=== PATIENT | female | born 1950 | race Caucasian/White ===

== ENCOUNTER 2016-08-07 07:34 | Day surgery (SDC) | payer BC ==
--- NOTE | ~2016-08-07 | EGD ---
EGD REPORT [facility] [address] [address] NAME: JULIUS MANUEL : [birth year] STATUS : REG [facility]#: [id number] AGE: 66 ADM/REG DATE : 08/07/16 MR#: [id number] REPORT SERV DATE: 08/07/16 DICTATED BY: SHANNON MORA DATE: 08/07/16 REPORT STATUS : Draft [facility]ANS[facility]IBED [facility]: [facility] DATE: 08/07/16 [facility] Patient Name: Julius Manuel Date of : 1950 Attending MD: JACOB MORA MD Procedure Date No Time: 08/07/2016 Procedure: Colonoscopy Indications: Screening for colorectal malignant neoplasm, Last colonoscopy: May 2006 Referring MD: NOE GIBBS Medicines: See the Anesthesia note for documentation of the administered medications Complications: No immediate complications. Estimated blood loss: None. Procedure: Pre-Anesthesia Assessment: - ASA Grade Assessment: II - A patient with mild systemic disease. - Prior to the procedure, a History and Physical was performed, and patient medications and allergies were reviewed. The patient's tolerance of previous anesthesia was also reviewed. The risks and benefits of the procedure and the sedation options and risks were discussed with the patient. All questions were answered, and informed consent was obtained. Prior Anticoagulants: The patient has taken no previous anticoagulant or antiplatelet agents. After reviewing the risks and benefits, the patient was deemed in satisfactory condition to undergo the procedure. After I obtained informed consent, the scope was passed under direct vision. Throughout the procedure, the patient's blood pressure, pulse, and oxygen saturations were monitored continuously. The PCF [id number] was introduced through the anus and advanced to the terminal ileum. The ileocecal valve, appendiceal orifice, terminal ileum and rectum were photographed. The entire colon was examined. The colonoscopy was performed without difficulty. The patient tolerated the procedure well. The quality of the bowel preparation was adequate. Findings: The perianal and digital rectal examinations were normal. The terminal ileum appeared normal. A sessile polyp was found in the distal descending colon. The polyp was 4 mm in size. The polyp was removed with a cold snare. Resection and retrieval were complete. Four sessile polyps were found in the recto-sigmoid colon. The polyps EGD REPORT [facility] [id number] [place]. [address] NAME: JULIUS MANUEL : [birth year] STATUS : REG [facility]#: [id number] AGE: 66 ADM/REG DATE : 08/07/16 MR#: [id number] REPORT SERV DATE: 08/07/16 DICTATED BY: SHANNON MORA DATE: 08/07/16 REPORT STATUS : Draft TRANSCRIBED BY: [employer] [facility] DATE: 08/07/16 were small in size. These polyps were removed with a cold snare. Resection and retrieval were complete. Non-bleeding internal hemorrhoids were found during retroflexion and were Grade I (internal hemorrhoids that do not prolapse). No other significant abnormalities were identified in a careful examination of the remainder of the colon. Prominent but normal appearing ICV Impression: - The examined portion of the ileum was normal. - One 4 mm polyp in the distal descending colon. Resected and retrieved. - Four small polyps at the recto-sigmoid colon. Resected and retrieved. - Non-bleeding internal hemorrhoids. - Prominent ICV Recommendation: - Patient has a contact number available for emergencies. The signs and symptoms of potential delayed complications were discussed with the patient. Return to normal activities tomorrow. Written discharge instructions were provided to the patient. - Regular diet. - Discharge patient to home. - Continue present medications. - Await pathology results. - Repeat colonoscopy in 5-10 years for surveillance based on pathology results. Procedure Code(s): --- Professional --- 08910, Colonoscopy, flexible, proximal to splenic flexure; with removal of tumor(s), polyp(s), or other lesion(s) by snare technique Diagnosis Code(s): --- Professional --- K64.0, First degree hemorrhoids D12.7, Benign neoplasm of rectosigmoid junction D12.4, Benign neoplasm of descending colon Z12.11, Encounter for screening for malignant neoplasm of colon CPT copyright 2013 [employer]. All rights reserved. The codes documented in this report are preliminary and upon explosive ordnance manager review may be revised to meet current compliance requirements. EGD REPORT [facility] [address] [address] NAME: JULIUS MANUEL : [birth year] STATUS : REG [facility] PAT#: [id number] AGE: 66 ADM/REG DATE : 08/07/16 MR#: [id number] REPORT SERV DATE: 08/07/16 DICTATED BY: SHANNON MORA DATE: 08/07/16 REPORT STATUS : Draft TRANSCRIBED BY: [employer] DATE: 08/07/16 JACOB MORA MD 08/07/2016 10:07 AM This report has been signed electronically. Number of Addenda: 0 Note Initiated On: 08/07/2016 9:30 AM Scope Withdrawal Time 0 hours 16 minutes 59 seconds [address] [id number]
[~2016-08-07 07:34] MED LIST: ACET500CAP PO; CALCIUM + D PO; CENTRUM TAB1 TAB PO; CRESTOR10 PO; HYZAAR1 TAB PO; PRILO PO; SYN1 PO; VITAMIN B-122500 MCG SL; VITAMIN D31000 UNIT PO
== END 2016-08-07 23:59 | disposition home or self-care (01) ==
LOC: DMU 07:34
PROVIDERS: Internal Medicine Gastroenterology
PROC: 0DBN8ZZ Excision of Sigmoid Colon, Via Natural or Artificial Opening Endoscopic (ICD-10-PCS; 2016-08-07)
PROC: 0DBM8ZZ Excision of Descending Colon, Via Natural or Artificial Opening Endoscopic (ICD-10-PCS; principal; 2016-08-07 09:00)
DX: Z12.11 Encounter for screening for malignant neoplasm of colon (principal); D12.4 Benign neoplasm of descending colon; K64.0 First degree hemorrhoids; D12.7 Benign neoplasm of rectosigmoid junction; E78.5 Hyperlipidemia, unspecified; E03.9 Hypothyroidism, unspecified; K21.9 Gastro-esophageal reflux disease without esophagitis; E78.00 Pure hypercholesterolemia, unspecified; I10 Essential (primary) hypertension; Z88.0 Allergy status to penicillin; Z88.8 Allergy status to other drugs, medicaments and biological substances; Z79.899 Other long term (current) drug therapy; Z98.41 Cataract extraction status, right eye; Z98.42 Cataract extraction status, left eye; Z90.49 Acquired absence of other specified parts of digestive tract; Z98.890 Other specified postprocedural states
CPT/HCPCS: 88305